=== PATIENT | male | born 1990 | race Caucasian/White ===

== ENCOUNTER 2022-04-12 05:39 | Emergency (ER) | payer BC, MEDICAID ==
[2022-04-12] MEDS ORDERED: SODIUM CHLORIDE 0.9% 1,000 ML IV STA (05:57)
[2022-04-12] MEDS ORDERED: ONDANSETRON 4 MG/2 ML VIAL IVP STA (05:57)
--- NOTE | 2022-04-12 06:01 | ED Physician Documentation ---
History of Present Illness - Stated complaint Stated Complaint: NAUSEA - Chief complaint Chief Complaint: General - History obtained from History obtained from: Patient - Additonal information Additional information: Patient presenting for evaluation of nausea and vomiting that started approximately 3 hours ago with 2-3 episodes of emesis. Patient has a history of type 2 diabetes and is on metformin and Jardiance. The Jardiance is a new medication as of 1 month ago. Patient reports vomiting up food this morning. He still reports some mild nausea. He denies abdominal pain, fever, chest pain, difficulty breathing, diarrhea. He checked his blood sugar this morning and then rechecked it and noticed that the number was going up to 217 which concerned him. Review of Systems Constitutional: denies: Fever Nose: denies: Congestion Cardiac: denies: Chest pain / pressure Respiratory: denies: Dyspnea GI: reports: Nausea, Vomiting. denies: Abdominal Pain, Diarrhea : denies: Dysuria Musculoskeletal: denies: Back pain Neurologic: denies: Generalized weakness, Headache PD PAST MEDICAL HISTORY - Present Medications Home Medications: Ambulatory Orders Medication Instructions Recorded Confirmed Ondansetron Odt [Zofran] 4 mg TL Q6H PRN #10 tablet 04/12/22 - Allergies Allergies/Adverse Reactions: Allergies Allergy/AdvReac Type Severity Reaction Status Date / Time Iodinated Contrast Media Allergy Anaphylaxis Verified 04/12/22 05:48 lactose Allergy Nausea Verified 04/12/22 05:48 PD ED PE NORMAL - General General: Alert and oriented X 3, No acute distress, Well developed/nourished - HEENT HEENT: Atraumatic, Moist mucous membranes - Neck Neck: Supple, no meningeal sign - Cardiac Cardiac: RRR, No murmur, Strong equal pulses - Respiratory Respiratory: No respiratory distress, Clear bilaterally - Abdomen Abdomen: Normal bowel sounds, Soft, Non tender, Non distended - Derm Derm: Warm and dry - Extremities Extremities: No edema Results - Vitals Vitals: Vital Signs - 24 hr 04/12/22 04/12/22 05:43 07:06 Temperature 36.2 C L Heart Rate 101 H 81 Respiratory 18 18 Rate Blood Pressure 128/87 H 124/81 H O2 Saturation 100 98 Oxygen O2 Source Room air - Labs Labs: Laboratory Tests 04/12/22 04/12/22 04/12/22 05:53 06:08 06:08 WBC 9.3 RBC 5.09 Hgb 14.3 Hct 42.6 MCV 83.7 MCH 28.1 MCHC 33.6 RDW 12.4 Plt Count 243 MPV 11.1 Neut # (Auto) 6.9 H Lymph # (Auto) 1.6 Sutton # (Auto) 0.7 Eos # (Auto) 0.1 Baso # (Auto) 0.0 Absolute Nucleated RBC 0.00 Nucleated RBC % 0.0 VBG pH VBG pCO2 VBG pO2 VBG HCO3 VBG Total CO2 VBG O2 Saturation VBG Base Excess Sodium 141 Potassium 3.9 Chloride 101 Carbon Dioxide 29 Anion Gap 11.0 BUN 22 H Creatinine 0.8 Estimated GFR (MDRD) 111 Glucose 182 H POC Whole Bld Glucose 160 H Calcium 9.6 Magnesium 2.1 Total Bilirubin 0.3 AST 18 ALT 25 Alkaline Phosphatase 49 Total Protein 8.1 Albumin 5.0 Globulin 3.1 Albumin/Globulin Ratio 1.6 Lipase 23 Serum Ketones NEGATIVE 04/12/22 06:08 WBC RBC Hgb Hct MCV MCH MCHC RDW Plt Count MPV Neut # (Auto) Lymph # (Auto) Sutton # (Auto) Eos # (Auto) Baso # (Auto) Absolute Nucleated RBC Nucleated RBC % VBG pH 7.336 VBG pCO2 51.8 H VBG pO2 32.2 VBG HCO3 27.1 VBG Total CO2 28.7 VBG O2 Saturation 63.3 VBG Base Excess 0.3 Sodium Potassium Chloride Carbon Dioxide Anion Gap BUN Creatinine Estimated GFR (MDRD) Glucose POC Whole Bld Glucose Calcium Magnesium Total Bilirubin AST ALT Alkaline Phosphatase Total Protein Albumin Globulin Albumin/Globulin Ratio Lipase Serum Ketones PD MEDICAL DECISION MAKING - ED course Complexity details: reviewed results, re-evaluated patient, d/w patient ED course: Patient presenting for evaluation of nausea and vomiting for a few hours this morning. Overall he is well-appearing with a benign abdomen. Clinically does not appear ill or in DKA. Labs reviewed without significant abnormalities. Joel lamar feeling better after IV fluids and Zofran.He is tolerating p.o.Patient has an appointment Already set up with his PCP on Friday. Discussed tricked return precautions with any worsening symptoms. 0645 - Patient is feeling better. He has been tolerating water and reports his nausea is gone. Denies any new symptoms. Departure - Departure Disposition: 01 Home, Self Care Clinical Impression: Nausea & vomiting Qualifiers: Vomiting type: unspecified Qualified Code(s): R11.2 - Nausea with vomiting, unspecified Condition: Stable Instructions: ED Nausea Vomiting Follow-Up: YONATAN KNOX ARNP [Primary Care Provider] - Prescriptions: Ondansetron Odt [Zofran] 4 mg TL Q6H PRN #10 tablet PRN Reason: Nausea / Vomiting Comments: You were evaluated for nausea and vomiting. Your electrolytes and other labs were normal and I do not see signs of diabetic ketoacidosis. I will prescribe antinausea medication called Zofran I have sent this to [facility] in [place]. Please use this medication as needed. If you have any worsening symptoms such as continued nausea or vomiting, Abnormal glucose readings, or feeling unwell please return to the emergency department. Discharge Date/Time: 04/12/22 07:07
[2022-04-12 06:15] LABS: BASOPHILS % (AUTO) 0.3 %; EOSINOPHILS # (AUTO) 0.1 10^3/uL (0.0-0.7); EOSINOPHILS % (AUTO) 0.8 %; HCT - HEMATOCRIT 42.6 % (42.0-52.0); HGB - HEMOGLOBIN 14.3 g/dL (14.0-18.0); LYMPHOCYTES # (AUTO) 1.6 10^3/uL (1.5-3.5); LYMPHOCYTES % (AUTO) 16.8 %; MEAN CORPUSCULAR HEMOGLOBIN 28.1 pg (27.0-31.0); MEAN CORPUSCULAR HGB CONC 33.6 g/dL (32.0-36.0); MEAN CORPUSCULAR VOLUME 83.7 fL (80.0-94.0); MEAN PLATELET VOLUME 11.1 fL (7.4-11.4); MONOCYTES # (AUTO) 0.7 10^3/uL (0.0-1.0); MONOCYTES % (AUTO) 7.8 %; NEUTROPHILS # (AUTO) 6.9 10^3/uL (1.5-6.6); PLT - PLATELET COUNT 243 10^3/uL (130-450); RED BLOOD COUNT 5.09 10^6/uL (4.70-6.10); RED CELL DISTRIBUTION WIDTH 12.4 % (12.0-15.0); WHITE BLOOD COUNT 9.3 x10^3/uL (4.8-10.8)
[2022-04-12 06:17] LABS: VBG PCO2 51.8 mmHg (41-51); VBG PH 7.336 (7.31-7.41); VBG PO2 32.2 mmHg (25-47)
[2022-04-12 06:18] LABS: VBG BASE EXCESS 0.3 mmol/L (-2 - +2); VBG HCO3 27.1 mmol/L (23-28); VBG OXYGEN SATURATION 63.3 % (60-80); VBG TOTAL CO2 28.7 mmol/L (24-29)
[2022-04-12 06:31] LABS: ALBUMIN/GLOBULIN RATIO 1.6 (1.0-2.2); ALKALINE PHOSPHATASE 49 IU/L (42-121); ALT ALANINE AMINOTRANSFERASE 25 IU/L (10-60); AST ASPARTATE AMINOTRANSFERASE 18 IU/L (10-42); BILIRUBIN,TOTAL 0.3 mg/dL (0.2-1.0); BUN - BLOOD UREA NITROGEN 22 mg/dL (6-20); CALCIUM 9.6 mg/dL (8.5-10.3); CARBON DIOXIDE - CO2 29 mmol/L (21-32); CHLORIDE 101 mmol/L (101-111); CREATININE 0.8 mg/dL (0.6-1.2); GFR - MDRD 111 (>89); GLUCOSE 182 mg/dL (70-100); LIPASE 23 U/L (22-51); MAGNESIUM 2.1 mg/dL (1.7-2.8); POTASSIUM 3.9 mmol/L (3.5-5.0); SODIUM 141 mmol/L (135-145); TOTAL PROTEIN 8.1 g/dL (6.7-8.2)
[2022-04-12 06:43] LABS: KETONES, SERUM (ACETEST) NEGATIVE (NEGATIVE)
[2022-04-12 07:06] VITALS: BP 124/81
== END 2022-04-12 07:07 | disposition home or self-care (01) ==
LOC: ED 05:39
DX: R11.2 Nausea with vomiting, unspecified (principal); E11.9 Type 2 diabetes mellitus without complications; Z79.4 Long term (current) use of insulin
CPT/HCPCS: 36415; 80053; 82009; 82803; 83690; 83735; 85025; 96361; 96374; 99282

== ENCOUNTER 2022-06-23 19:55 | Emergency (ER) | payer BC, MEDICAID ==
--- NOTE | 2022-06-23 20:14 | ED Physician Documentation ---
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 Location: Left Quality: Aching Associated symptoms: Numbness. 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 Brought to ED by private vehicle and , en route, his numbness resolved completely with near-resolution of difficulty speaking. As the symptoms improved, he developed left parieto- occipital headache. He took 400mg ibuprofen for the headache. Patient says he has been diagnosed with hemiplegic migraines although he has had few previous episodes. He does not take migraine-specific medication due to infrequency of migraine headaches (which he has more frequently than hemiplegic migraines, though still seldom in frequency), as well as resolution of migraines with OTC medication and sleep. Patient has DMII, checked his blood sugar [employer] and result was 120 Review of Systems Constitutional: reports: Reviewed and negative Eyes: reports: Reviewed and negative GI: denies: Nausea, Vomiting Neurologic: reports: Numbness (resolved [employer]), Difficulty speaking, Headache. denies: Generalized weakness, Focal weakness, Near syncope, Syncope, Seizure, Confused, Head injury, LOC PD PAST MEDICAL HISTORY - Past Medical History Past Medical History: Yes Neuro: Migraines Endocrine/Autoimmune: Type 2 diabetes - Present Medications Home Medications: Ambulatory Orders Medication Instructions Recorded Confirmed Ondansetron Odt [Zofran] 4 mg TL Q6H PRN #10 tablet 04/12/22 - Allergies Allergies/Adverse Reactions: Allergies Allergy/AdvReac Type Severity Reaction Status Date / Time Iodinated Contrast Media Allergy Anaphylaxis Verified 06/23/22 20:03 lactose Allergy Nausea Verified 06/23/22 20:03 PD ED PE NORMAL - Vitals Vital signs reviewed: Yes - General General: Alert and oriented X 3, No acute distress, Well developed/nourished - HEENT HEENT: PERRL, EOMI, Moist mucous membranes - Neck Neck: Supple, no meningeal sign - Cardiac Cardiac: RRR, No murmur - Respiratory Respiratory: No respiratory distress, Clear bilaterally - Neuro Neuro: Alert and oriented X 3, 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 He can only recall having CTH once before (approximately 2 years ago); considering this as well as the infrequency of previous hemiplegic migraines for this patient, CTH performed tonight. This study is unremarkable and on reevaluation he is in NAD and asymptomatic. Results d/w patient Departure - Departure Disposition: 01 Home, Self Care Clinical Impression: Hemiplegic migraine Condition: Good Instructions: ED Headache Migraine Comments: The CT scan is without concerning findings. An incidental note is made of a small polyp or cyst in one of your sinuses (left side). The course of tonight's symptoms seems to be consistent with your previous hemiplegic migraine. Discharge Date/Time: 06/23/22 22:23
--- NOTE | 2022-06-23 21:02 | CT Report ---
PROCEDURE: HEAD WO INDICATIONS: headache, numbness (resolved) TECHNIQUE: Noncontrast 4.5 mm thick angled axial sections acquired from the foramen magnum to the vertex. For r adiation dose reduction, the following was used: automated exposure control, adjustment of mA and/or kV according to patient size. COMPARISON: None. FINDINGS: Image quality: Excellent. CSF spaces: Basal cisterns are patent. No extra-axial fluid collections. Ventricles are normal in size and shape. Brain: No intracranial hemorrhage, mass, or mass effect. Cuevas-white matter interface appears preser jim. Skull and face: Calvarium and visualized facial bones are intact, without suspicious lesions. Sinuses: Visualized sinuses demonstrate a small sinus retention cyst or mucosal polyp within the lef t maxillary sinus. Mastoid air cells are clear. IMPRESSION: 1. No acute intracranial abnormality. Reviewed by: Moris Razo MD on 06/23/2022 9:01 PM [facility] Approved by: Moris Razo MD on 06/23/2022 9:01 PM [facility] Station ID: [id number]
[2022-06-23 22:24] VITALS: BP 130/80
== END 2022-06-23 22:23 | disposition home or self-care (01) ==
LOC: ED 19:55
DX: G43.409 Hemiplegic migraine, not intractable, without status migrainosus (principal)
CPT/HCPCS: 99284